=== PATIENT | female | born 1980 | race Caucasian/White ===

== ENCOUNTER 2020-12-12 08:53 | Emergency (ER) | payer OTHER ==
[~2020-12-12] VITALS: Ht 165.1 cm; Wt 113.6 kg
[2020-12-12] MEDS ORDERED: cephalexin 500mg capsule PO ONE (09:20)
--- NOTE | 2020-12-12 09:20 | NUR ---
dr walters has removed the pus from the corner of finger nail with help of 18 g sterile needle.plan is to d/c the pt with keflex.
[2020-12-12 09:21] VITALS: BP 119/86
[2020-12-12] MEDS ORDERED: CEPH-585 PO (09:22)
== END 2020-12-12 09:49 | disposition home or self-care (01) ==
LOC: ER 08:54
DX: L03.012 Cellulitis of left finger (principal); L03.114 Cellulitis of left upper limb; M79.645 Pain in left finger(s); F32.9 Major depressive disorder, single episode, unspecified; F17.200 Nicotine dependence, unspecified, uncomplicated; F12.90 Cannabis use, unspecified, uncomplicated; Z90.89 Acquired absence of other organs; Z90.49 Acquired absence of other specified parts of digestive tract; Z60.2 Problems related to living alone; Z88.1 Allergy status to other antibiotic agents; Z79.2 Long term (current) use of antibiotics
CPT/HCPCS: 10060; 99283